=== PATIENT | female | born 1970 | race Caucasian/White ===

== ENCOUNTER 2017-09-28 12:51 | Outpatient (CLI) | payer OTHER | END 2017-09-28 12:56 | disposition home or self-care (01) | LOC: SONOGRAMA 12:51 | DX: E04.1 Nontoxic single thyroid nodule (principal); E06.3 Autoimmune thyroiditis ==

== ENCOUNTER 2018-01-21 13:16 | Emergency (ER) | payer OTHER ==
[~2018-01-21] VITALS: Ht 172.7 cm; Wt 90.7 kg
== END 2018-01-21 14:24 | disposition home or self-care (01) ==
LOC: ER 13:16
DX: M51.36 Other intervertebral disc degeneration, lumbar region (principal)

== ENCOUNTER 2018-10-27 09:42 | Outpatient (CLI) | payer OTHER | END 2018-10-27 09:45 | disposition home or self-care (01) | LOC: MAMO-SONO 09:42 | DX: N60.11 Diffuse cystic mastopathy of right breast (principal); N60.12 Diffuse cystic mastopathy of left breast; Z12.31 Encounter for screening mammogram for malignant neoplasm of breast ==

== ENCOUNTER 2019-01-23 16:58 | Emergency (ER) | payer OTHER ==
[~2019-01-23] VITALS: Ht 172.7 cm; Wt 104.3 kg
== END 2019-01-23 22:57 | disposition home or self-care (01) ==
LOC: ER 16:58
DX: S90.32XA Contusion of left foot, initial encounter (principal); W18.39XA Other fall on same level, initial encounter; Y93.89 Activity, other specified; Y92.098 Other place in other non-institutional residence as the place of occurrence of the external cause; Y99.8 Other external cause status

== ENCOUNTER 2019-04-12 11:14 | Outpatient (CLI) | payer OTHER | END 2019-04-12 11:19 | disposition home or self-care (01) | LOC: SONOGRAMA 11:14 | DX: E04.2 Nontoxic multinodular goiter (principal) ==

== ENCOUNTER → 2019-04-12 | Outpatient (CLI) | payer OTHER | END | disposition home or self-care (01) | LOC: NUCLEAR 10-29 14:00 | DX: M81.0 Age-related osteoporosis without current pathological fracture (principal); M85.80 Other specified disorders of bone density and structure, unspecified site ==

== ENCOUNTER 2020-10-12 08:12 | Outpatient (CLI) | payer OTHER | END 2020-10-12 08:35 | disposition home or self-care (01) | LOC: MAMO-SONO 08:12 | PROVIDERS: ATTEND Specialist | DX: R04.2 Hemoptysis (principal); N60.11 Diffuse cystic mastopathy of right breast ==

== ENCOUNTER → 2021-10-16 | Outpatient (CLI) | payer OTHER | END | disposition home or self-care (01) | LOC: SONOGRAMA 09:38 | PROVIDERS: ATTEND Specialist | DX: E04.2 Nontoxic multinodular goiter (principal) ==

== ENCOUNTER 2021-10-22 10:20 | Outpatient (CLI) | payer OTHER | END 2021-10-22 10:33 | disposition home or self-care (01) | LOC: MAMO-SONO 10:20 | DX: N60.11 Diffuse cystic mastopathy of right breast (principal); N60.12 Diffuse cystic mastopathy of left breast ==

== ENCOUNTER 2022-11-24 10:28 | Outpatient (CLI) | payer OTHER | END 2022-11-24 10:36 | disposition home or self-care (01) | LOC: MAMO-SONO 10:28 | PROVIDERS: ATTEND Obstetrics & Gynecology | DX: Z12.31 Encounter for screening mammogram for malignant neoplasm of breast (principal); N60.11 Diffuse cystic mastopathy of right breast; N60.12 Diffuse cystic mastopathy of left breast ==

== ENCOUNTER 2022-11-25 12:37 | Outpatient (CLI) | payer OTHER | END 2022-11-25 12:49 | disposition home or self-care (01) | LOC: SONOGRAMA 12:37 | PROVIDERS: ATTEND Specialist | DX: E04.2 Nontoxic multinodular goiter (principal) ==

== ENCOUNTER 2023-06-26 11:21 | Emergency (ER) | payer OTHER ==
[~2023-06-26] VITALS: Ht 172.7 cm; Wt 98.4 kg
[2023-06-26] MEDS ORDERED: CRESTOR5 MG PO (11:48)
[2023-06-26] MEDS ORDERED: YUVAFEM10 MCG (11:48)
[2023-06-26] MEDS ORDERED: PROMETRIUM200 MG (11:49)
[2023-06-26] MEDS ORDERED: CLIMARA1 EAC2 TD (11:49)
== END 2023-06-26 16:00 | disposition home or self-care (01) ==
LOC: ER 11:22
DX: M75.51 Bursitis of right shoulder (principal); M75.91 Shoulder lesion, unspecified, right shoulder

== ENCOUNTER 2023-10-13 10:07 | Outpatient (CLI) | payer OTHER ==
[~2023-10-13 10:07] MED LIST: CLIMARA1 EAC2 TD; CRESTOR5 MG PO; PROMETRIUM200 MG; YUVAFEM10 MCG
== END 2023-10-13 12:00 | disposition home or self-care (01) ==
LOC: SONOGRAMA 10:07 → NUCLEAR 10-27 13:00
DX: E04.2 Nontoxic multinodular goiter (principal)

== ENCOUNTER 2024-11-25 09:49 | Outpatient (CLI) | payer OTHER | END 2024-11-25 09:56 | disposition home or self-care (01) | LOC: SONOGRAMA 09:49 | DX: E04.2 Nontoxic multinodular goiter (principal) ==

== ENCOUNTER → 2025-01-03 | Outpatient (CLI) | payer OTHER | END | disposition home or self-care (01) | LOC: MAMO-SONO 11:27 | PROVIDERS: ATTEND Obstetrics & Gynecology | DX: N60.11 Diffuse cystic mastopathy of right breast (principal); N60.12 Diffuse cystic mastopathy of left breast; Z12.31 Encounter for screening mammogram for malignant neoplasm of breast ==

== ENCOUNTER → 2025-01-17 | Emergency (ER) | payer OTHER ==
[~2025-01-17] VITALS: Ht 172.7 cm; Wt 101.2 kg
[~2025-01-17] MED LIST changes: +AMOX1TAB5 PO; +ANTIVERT25 M2 PO; +CORTISPORIN EAR10 M1 OPHT; +PEPCID AC20 MG PO
== END | disposition home or self-care (01) ==
LOC: ER 09:53
DX: H60.8X2 Other otitis externa, left ear (principal)